=== PATIENT | male | born 1990 | race Caucasian/White ===

== ENCOUNTER 2018-04-17 03:26 | Inpatient (IN) | payer OTHER ==
[2018-04-17 04:15] LABS: ADD MAN DIFF? NO
[2018-04-17 04:21] LABS: WHITE BLOOD COUNT 20.2 10^3/ul (4.8-10.8)
[2018-04-17 04:21] LABS: ABNORMAL IP MESSAGE 1; BASOPHILS % 0.2 % (0.0-2.0); HEMATOCRIT 43.8 % (42.0-52.0); HEMOGLOBIN 13.5 g/dl (14.0-18.0); LYMPHOCYTES # 0.9 10^3/ul (0.8-2.9); LYMPHOCYTES % 4.5 % (15.0-51.0); MEAN CORPUSCULAR HEMOGLOBIN 29.7 pg (29.0-33.0); MEAN CORPUSCULAR HGB CONC 30.8 g/dl (32.0-37.0); MEAN CORPUSCULAR VOLUME 96.3 fl (82.0-101.0); MONOCYTE # 1.5 10^3/ul (0.3-0.9); MONOCYTES % 7.6 % (0.0-11.0); NEUTROPHIL # 17.6 10^3/ul (1.6-7.5); NEUTROPHILS % 87.2 % (39.0-77.0); PLATELET COUNT 329 10^3/UL (140-415); POSITIVE DIFF @See below; RED BLOOD COUNT 4.55 10^6/ul (4.70-6.10); RED CELL DISTRIBUTION WIDTH 14.3 % (11.5-14.5)
[2018-04-17 04:34] LABS: ALANINE AMINOTRANSFERASE 27 IU/L (13-69); ALBUMIN 5.2 g/dl (3.3-4.9); ALBUMIN/GLOBULIN RATIO 1.04; ALKALINE PHOSPHATASE 62 IU/L (42-121); ANION GAP 21 (5-13); ASPARTATE AMINO TRANSFERASE 56 IU/L (15-46); BILIRUBIN,INDIRECT 0.2 mg/dl (0-1.1); BILIRUBIN,TOTAL 0.2 mg/dl (0.2-1.3); BLOOD UREA NITROGEN 22 mg/dl (7-20); CALCIUM 10.6 mg/dl (8.4-10.2); CARBON DIOXIDE 16 mmol/L (21-31); CHLORIDE 115 mmol/L (97-110); CREATININE 0.93 mg/dl (0.61-1.24); Estimated GFR > 60 mL/min (>60); GLUCOSE 283 mg/dl (70-220); LIPASE 1387 U/L (23-300); POTASSIUM 4.4 mmol/L (3.5-5.1); SODIUM 152 mmol/L (135-144); TOTAL PROTEIN 10.2 g/dl (6.1-8.1)
[2018-04-17 04:45] LABS: TROPONIN-I 0.031 ng/ml (0.000-0.120)
[2018-04-17 05:03] LABS: INR 1.05; PROTIME 13.8 Sec (11.9-14.9); PT RATIO 1.1
[2018-04-17 05:04] LABS: PARTIAL THROMBOPLASTIN TIME 29.8 Sec (23.0-35.0)
[2018-04-17] MEDS: IOHEXOL 100 ML (05:38)
[2018-04-17] MEDS: SOD CHLORIDE 0.9% 100 ML (05:38)
[2018-04-17] MEDS: SODIUM CHLORIDE 0.9% 1L BAG IV* (06:00)
[2018-04-17] MEDS: VANCOMYCIN 1 GM (PMX) 250 ML IVPB (06:12)
[2018-04-17] MEDS: CEFEPIME 2GM/50 ML (PMX) 50 ML IVPB (06:12)
[2018-04-17] MEDS ORDERED: ACETAMINOPHEN 325 MG TAB PO (06:30)
[2018-04-17] MEDS ORDERED: ONDANSETRON 4 MG INJ IV ×2 (06:30→07:30)
[2018-04-17] MEDS: ACETAMINOPHEN 650 MG SUPP PR (06:34)
[2018-04-17] MEDS ORDERED: VANCOMYCIN IV PER PHARMACY XX (07:30)
[2018-04-17] MEDS: SOD CHLORIDE 0.9% 1,000 ML IV (07:30)
[2018-04-17] MEDS ORDERED: NACL 0.9% 3 ML SYG IV (07:30)
[2018-04-17] MEDS ORDERED: ACETAMINOPHEN 650 MG SUPP PR (07:30)
[2018-04-17] MEDS: DIATR MEGLU/DIATRIZOATE SODIUM 120 ML BTL PO (08:30)
[2018-04-17] MEDS ORDERED: DEXTROSE 50% 50 ML SYRINGE IV ×2 (11:00)
[2018-04-17] MEDS ORDERED: GLUCAGON 1 MG INJ IM (11:00)
[2018-04-17] MEDS ORDERED: GLUCOSE GEL 15 GRAM TUBE BUCCAL (11:00)
[2018-04-17] MEDS ORDERED: GLUCOSE GEL 15 GRAM TUBE PO ×2 (11:00)
[2018-04-17] MEDS: SOD CHLORIDE 0.45% 1,000 ML IV ×2 (11:07→20:38)
[2018-04-17 11:17] LABS: LACTIC ACID 3.1 mmol/L (0.5-2.0)
[2018-04-17] MEDS ORDERED: DIPHENHYDRAMINE 50 MG CAP PO (11:30)
[2018-04-17] MEDS ORDERED: AL HYDROX/MG HYDROX/SIMETH 30 ML CUP PO (11:30)
[2018-04-17] MEDS: INSULIN ASPART [NOVOLOG] 3 ML PEN SC ×3 (11:48→20:53)
[2018-04-17] MEDS: VANCOMYCIN 1.25 GM in SOD CHLORIDE 0.9% 250 ML IVPB ×2 (12:15→19:17)
[2018-04-17] MEDS: PIPER-TAZO 3.375 GM IV (PMX) 100 ML IVPB ×3 (12:15→23:17)
[2018-04-17] MEDS ORDERED: HEPARIN 5,000 UNIT/0.5 ML VIAL ×2 (13:48→22:33)
[2018-04-17] MEDS: DICLOFENAC SODIUM 1% GEL 100 GM TUBE TP ×3 (14:01→20:32)
[2018-04-17] MEDS: GABAPENTIN 300 MG CAP PO ×2 (14:02→20:34)
[2018-04-17] MEDS: BACLOFEN 10 MG TAB PO ×2 (14:02→20:34)
[2018-04-17] MEDS: HEPARIN 5,000 UNIT/1 ML VIAL SC ×2 (14:03→22:46)
[2018-04-17] MEDS: DIAZEPAM 5 MG TAB PO ×2 (14:06→20:38)
[2018-04-17] MEDS: HYDROCODONE/APAP (5/325) TAB PO ×2 (14:20→20:32)
[2018-04-17] MEDS: ASCORBIC ACID 500 MG TAB PO (20:34)
[2018-04-17] MEDS: TAMSULOSIN (SR) 0.4 MG CAP PO (20:34)
[2018-04-17] MEDS: ATORVASTATIN 20 MG TAB PO (20:34)
[2018-04-17] MEDS: BISACODYL 10 MG SUPP PR (21:00)
[2018-04-17] MEDS: ZOLPIDEM 5 MG TAB PO (22:44)
[2018-04-17] MEDS: ACETAMINOPHEN 325 MG TAB PO (22:52)
[2018-04-17] MEDS: MAGNESIUM HYDROXIDE 30ML CUP PO (23:46)
[2018-04-17] MEDS: POLYETHYLENE GLYCOL 17 GM PACKET PO (23:46)
[2018-04-18] MEDS: HYDROCODONE/APAP (5/325) TAB PO ×5 (01:29→22:09)
[2018-04-18] MEDS: TIZANIDINE 2 MG TAB PO (01:42)
[2018-04-18] MEDS: ACCU-CHEK XX (02:00)
[2018-04-18] MEDS: VANCOMYCIN 1.25 GM in SOD CHLORIDE 0.9% 250 ML IVPB ×2 (03:27→17:58)
[2018-04-18] MEDS: ACETAMINOPHEN 325 MG TAB PO ×3 (04:23→18:15)
[2018-04-18] MEDS ORDERED: HEPARIN 5,000 UNIT/0.5 ML VIAL ×4 (06:25→21:09)
[2018-04-18] MEDS: PIPER-TAZO 3.375 GM IV (PMX) 100 ML IVPB ×4 (06:31→23:44)
[2018-04-18] MEDS: PANTOPRAZOLE 40 MG INJ IV (06:32)
[2018-04-18] MEDS: HEPARIN 5,000 UNIT/1 ML VIAL SC ×3 (06:34→21:16)
[2018-04-18] MEDS: SOD CHLORIDE 0.45% 1,000 ML IV ×3 (07:00→23:45)
[2018-04-18] MEDS: INSULIN ASPART [NOVOLOG] 3 ML PEN SC ×4 (07:55→20:55)
[2018-04-18 08:46] LABS: MAGNESIUM 2.5 mg/dl (1.7-2.5)
[2018-04-18 08:51] LABS: ALANINE AMINOTRANSFERASE 33 IU/L (13-69); ALBUMIN 4.4 g/dl (3.3-4.9); ALBUMIN/GLOBULIN RATIO 1.33; ALKALINE PHOSPHATASE 44 IU/L (42-121); ANION GAP 13 (5-13); ASPARTATE AMINO TRANSFERASE 42 IU/L (15-46); BILIRUBIN,INDIRECT 0.4 mg/dl (0-1.1); BILIRUBIN,TOTAL 0.4 mg/dl (0.2-1.3); BLOOD UREA NITROGEN 18 mg/dl (7-20); CALCIUM 9.1 mg/dl (8.4-10.2); CARBON DIOXIDE 23 mmol/L (21-31); CHLORIDE 109 mmol/L (97-110); CREATININE 0.64 mg/dl (0.61-1.24); Estimated GFR > 60 mL/min (>60); GLUCOSE 120 mg/dl (70-220); POTASSIUM 3.9 mmol/L (3.5-5.1); SODIUM 145 mmol/L (135-144); TOTAL PROTEIN 7.7 g/dl (6.1-8.1)
[2018-04-18] MEDS: FLUOXETINE 10 MG CAP PO (08:55)
[2018-04-18] MEDS: ASCORBIC ACID 500 MG TAB PO ×2 (08:55→20:56)
[2018-04-18] MEDS: GABAPENTIN 300 MG CAP PO ×3 (08:55→20:56)
[2018-04-18] MEDS: MAGNESIUM HYDROXIDE 30ML CUP PO ×3 (08:56→21:00)
[2018-04-18] MEDS: BACLOFEN 10 MG TAB PO ×3 (08:56→20:56)
[2018-04-18] MEDS: POLYETHYLENE GLYCOL 17 GM PACKET PO ×3 (08:56→21:00)
[2018-04-18] MEDS: DICLOFENAC SODIUM 1% GEL 100 GM TUBE TP ×4 (08:57→20:58)
[2018-04-18] MEDS: DIAZEPAM 5 MG TAB PO ×3 (08:57→20:57)
[2018-04-18 09:17] LABS: THYROID STIMULATING HORMONE 0.563 MIU/L (0.465-4.680)
[2018-04-18 09:18] LABS: HEMOGLOBIN A1C 6.3 % (0-5.9)
[2018-04-18 11:02] LABS: VANCOMYCIN,TROUGH 23.6 ug/ml (10.0-20.0)
[2018-04-18] MEDS: morphine (ER) 15 MG TAB PO ×2 (11:57→20:57)
[2018-04-18] MEDS: ATORVASTATIN 20 MG TAB PO (20:56)
[2018-04-18] MEDS: TAMSULOSIN (SR) 0.4 MG CAP PO (20:56)
[2018-04-18] MEDS: BISACODYL 10 MG SUPP PR ×2 (20:57→21:00)
[2018-04-18] MEDS: ZOLPIDEM 5 MG TAB PO (23:47)
[2018-04-19] MEDS: ACCU-CHEK XX (01:17)
[2018-04-19] MEDS: SOD CHLORIDE 0.45% 1,000 ML IV ×3 (02:44→22:11)
[2018-04-19] MEDS: HYDROCODONE/APAP (5/325) TAB PO ×4 (02:45→18:19)
[2018-04-19] MEDS ORDERED: HEPARIN 5,000 UNIT/0.5 ML VIAL ×2 (05:28→13:14)
[2018-04-19] MEDS: PIPER-TAZO 3.375 GM IV (PMX) 100 ML IVPB ×3 (05:34→17:13)
[2018-04-19] MEDS: PANTOPRAZOLE 40 MG INJ IV (05:34)
[2018-04-19] MEDS: HEPARIN 5,000 UNIT/1 ML VIAL SC ×3 (05:43→21:25)
[2018-04-19] MEDS: VANCOMYCIN 1.25 GM in SOD CHLORIDE 0.9% 250 ML IVPB ×2 (06:16→18:03)
[2018-04-19 06:21] LABS: ADD MAN DIFF? NO
[2018-04-19 06:29] LABS: WHITE BLOOD COUNT 7.4 10^3/ul (4.8-10.8)
[2018-04-19 06:29] LABS: BASOPHILS % 0.5 % (0.0-2.0); EOSINOPHILS # 0.2 10^3/ul (0.0-0.5); EOSINOPHILS % 2.7 % (0.0-7.0); HEMATOCRIT 28.3 % (42.0-52.0); HEMOGLOBIN 8.9 g/dl (14.0-18.0); LYMPHOCYTES # 2.2 10^3/ul (0.8-2.9); MEAN CORPUSCULAR HEMOGLOBIN 29.5 pg (29.0-33.0); MEAN CORPUSCULAR HGB CONC 31.4 g/dl (32.0-37.0); MEAN CORPUSCULAR VOLUME 93.7 fl (82.0-101.0); MEAN PLATELET VOLUME 11.8 fl (7.4-10.4); MONOCYTE # 0.9 10^3/ul (0.3-0.9); MONOCYTES % 12.1 % (0.0-11.0); NEUTROPHILS % 54.4 % (39.0-77.0); PLATELET COUNT 224 10^3/UL (140-415); RED BLOOD COUNT 3.02 10^6/ul (4.70-6.10); RED CELL DISTRIBUTION WIDTH 13.9 % (11.5-14.5)
[2018-04-19 07:00] LABS: ANION GAP 7 (5-13); BLOOD UREA NITROGEN 8 mg/dl (7-20); CARBON DIOXIDE 26 mmol/L (21-31); CHLORIDE 109 mmol/L (97-110); CREATININE 0.52 mg/dl (0.61-1.24); Estimated GFR > 60 mL/min (>60); GLUCOSE 103 mg/dl (70-220); MAGNESIUM 2.3 mg/dl (1.7-2.5); PHOSPHORUS 2.3 mg/dl (2.5-4.9); POTASSIUM 3.6 mmol/L (3.5-5.1); SODIUM 142 mmol/L (135-144)
[2018-04-19] MEDS: INSULIN ASPART [NOVOLOG] 3 ML PEN SC ×4 (07:43→21:00)
[2018-04-19] MEDS: POLYETHYLENE GLYCOL 17 GM PACKET PO ×2 (09:00→21:01)
[2018-04-19] MEDS: morphine (ER) 15 MG TAB PO ×2 (09:05→21:01)
[2018-04-19] MEDS: GABAPENTIN 300 MG CAP PO ×3 (09:05→21:00)
[2018-04-19] MEDS: DIAZEPAM 5 MG TAB PO ×3 (09:05→21:01)
[2018-04-19] MEDS: ASCORBIC ACID 500 MG TAB PO ×2 (09:05→21:00)
[2018-04-19] MEDS: FLUOXETINE 10 MG CAP PO (09:05)
[2018-04-19] MEDS: BACLOFEN 10 MG TAB PO ×2 (09:05→12:35)
[2018-04-19] MEDS: DICLOFENAC SODIUM 1% GEL 100 GM TUBE TP ×4 (09:06→20:59)
[2018-04-19] MEDS: MAGNESIUM HYDROXIDE 30ML CUP PO ×2 (09:15→21:01)
[2018-04-19] MEDS: ACETAMINOPHEN 325 MG TAB PO ×2 (11:05→15:05)
[2018-04-19] MEDS: ATORVASTATIN 20 MG TAB PO (21:00)
[2018-04-19] MEDS: BISACODYL 10 MG SUPP PR (21:00)
[2018-04-19] MEDS: TAMSULOSIN (SR) 0.4 MG CAP PO (21:00)
[2018-04-19] MEDS: POTASSIUM PHOSPHATE 20 MEQ in SOD CHLORIDE 0.9% 250 ML IVPB (21:03)
[2018-04-20] MEDS: PIPER-TAZO 3.375 GM IV (PMX) 100 ML IVPB ×3 (00:32→14:10)
[2018-04-20] MEDS: HYDROCODONE/APAP (5/325) TAB PO ×3 (00:56→17:29)
[2018-04-20] MEDS: ACCU-CHEK XX (01:58)
[2018-04-20 06:12] LABS: ADD MAN DIFF? NO
[2018-04-20] MEDS: PANTOPRAZOLE 40 MG INJ IV (06:13)
[2018-04-20 06:14] LABS: BASOPHIL # 0.1 10^3/ul (0.0-0.1); BASOPHILS % 0.7 % (0.0-2.0); EOSINOPHILS # 0.3 10^3/ul (0.0-0.5); EOSINOPHILS % 3.6 % (0.0-7.0); HEMATOCRIT 32.1 % (42.0-52.0); HEMOGLOBIN 9.9 g/dl (14.0-18.0); LYMPHOCYTES # 1.7 10^3/ul (0.8-2.9); LYMPHOCYTES % 22.7 % (15.0-51.0); MEAN CORPUSCULAR HEMOGLOBIN 29.2 pg (29.0-33.0); MEAN CORPUSCULAR HGB CONC 30.8 g/dl (32.0-37.0); MEAN CORPUSCULAR VOLUME 94.7 fl (82.0-101.0); MEAN PLATELET VOLUME 12.6 fl (7.4-10.4); MONOCYTE # 0.7 10^3/ul (0.3-0.9); MONOCYTES % 9.4 % (0.0-11.0); NEUTROPHIL # 4.8 10^3/ul (1.6-7.5); NEUTROPHILS % 63.3 % (39.0-77.0); PLATELET COUNT 225 10^3/UL (140-415); RED BLOOD COUNT 3.39 10^6/ul (4.70-6.10); RED CELL DISTRIBUTION WIDTH 13.6 % (11.5-14.5)
[2018-04-20 06:14] LABS: WHITE BLOOD COUNT 7.6 10^3/ul (4.8-10.8)
[2018-04-20] MEDS: HEPARIN 5,000 UNIT/1 ML VIAL SC ×2 (06:28→14:44)
[2018-04-20] MEDS: VANCOMYCIN 1.25 GM in SOD CHLORIDE 0.9% 250 ML IVPB (06:52)
[2018-04-20 07:02] LABS: ANION GAP 10 (5-13); BLOOD UREA NITROGEN 9 mg/dl (7-20); CALCIUM 9.3 mg/dl (8.4-10.2); CARBON DIOXIDE 25 mmol/L (21-31); CHLORIDE 108 mmol/L (97-110); Estimated GFR > 60 mL/min (>60); GLUCOSE 108 mg/dl (70-220); MAGNESIUM 2.3 mg/dl (1.7-2.5); POTASSIUM 4.1 mmol/L (3.5-5.1); SODIUM 143 mmol/L (135-144)
[2018-04-20 07:36] LABS: VANCOMYCIN,TROUGH 15.4 ug/ml (10.0-20.0)
[2018-04-20] MEDS: INSULIN ASPART [NOVOLOG] 3 ML PEN SC ×2 (08:02→12:09)
[2018-04-20] MEDS: DICLOFENAC SODIUM 1% GEL 100 GM TUBE TP ×3 (09:00→17:28)
[2018-04-20] MEDS: SOD CHLORIDE 0.45% 1,000 ML IV (09:00)
[2018-04-20] MEDS: MAGNESIUM HYDROXIDE 30ML CUP PO (09:38)
[2018-04-20] MEDS: POLYETHYLENE GLYCOL 17 GM PACKET PO (09:38)
[2018-04-20] MEDS: GABAPENTIN 300 MG CAP PO ×2 (09:39→14:10)
[2018-04-20] MEDS: morphine (ER) 15 MG TAB PO (09:39)
[2018-04-20] MEDS: FLUOXETINE 10 MG CAP PO (09:39)
[2018-04-20] MEDS: ASCORBIC ACID 500 MG TAB PO (09:39)
[2018-04-20] MEDS: DIAZEPAM 5 MG TAB PO ×2 (09:40→14:10)
[2018-04-20] MEDS: BACLOFEN 10 MG TAB PO (10:56)
[2018-04-20] MEDS: LIDOCAINE 1% (MPF) 5 ML VIAL SC (12:35)
== END 2018-04-20 17:41 | DRG 871 ==
LOC: E/R 03:26 → TEL 06:21
PROC: 5A1945Z Respiratory Ventilation, 24-96 Consecutive Hours (ICD-10-PCS; principal; 2018-04-17)
PROC: 05HY33Z Insertion of Infusion Device into Upper Vein, Percutaneous Approach (ICD-10-PCS; 2018-04-17)
PROC: B54MZZA Ultrasonography of Right Upper Extremity Veins, Guidance (ICD-10-PCS; 2018-04-17)
DX: A41.9 Sepsis, unspecified organism (principal); J18.9 Pneumonia, unspecified organism; K56.600 Partial intestinal obstruction, unspecified as to cause; Z99.11 Dependence on respirator [ventilator] status; G82.20 Paraplegia, unspecified; R65.20 Severe sepsis without septic shock; Z93.0 Tracheostomy status; E86.0 Dehydration; G89.29 Other chronic pain; S32.049D Unspecified fracture of fourth lumbar vertebra, subsequent encounter for fracture with routine healing; S32.059D Unspecified fracture of fifth lumbar vertebra, subsequent encounter for fracture with routine healing; E11.9 Type 2 diabetes mellitus without complications; M79.2 Neuralgia and neuritis, unspecified; R74.8 Abnormal levels of other serum enzymes; Z79.4 Long term (current) use of insulin; W34.00XD Accidental discharge from unspecified firearms or gun, subsequent encounter
CPT/HCPCS: 36415; 36569; 71045; 71275; 74019; 74176; 76937; 80048; 80053; 80202; 82962; 83036; 83605; 83690; 83735; 84100; 84443; 84484; 85025; 85610; 85730; 87040; 87070; 87081; 87400; 89220; 92526; 92610; 93005; 94002; 94003; 96374; 96375; 99291-25

== ENCOUNTER 2018-04-21 00:38 | Inpatient (IN) | payer OTHER ==
[2018-04-21 01:38] LABS: ADD MAN DIFF? NO
[2018-04-21 01:45] LABS: WHITE BLOOD COUNT 5.9 10^3/ul (4.8-10.8)
[2018-04-21 01:45] LABS: BASOPHILS % 0.7 % (0.0-2.0); EOSINOPHILS # 0.4 10^3/ul (0.0-0.5); EOSINOPHILS % 6.1 % (0.0-7.0); HEMOGLOBIN 9.3 g/dl (14.0-18.0); LYMPHOCYTES # 1.3 10^3/ul (0.8-2.9); LYMPHOCYTES % 22.7 % (15.0-51.0); MEAN CORPUSCULAR HEMOGLOBIN 29.3 pg (29.0-33.0); MEAN CORPUSCULAR VOLUME 94.6 fl (82.0-101.0); MEAN PLATELET VOLUME 11.6 fl (7.4-10.4); MONOCYTE # 0.5 10^3/ul (0.3-0.9); MONOCYTES % 7.7 % (0.0-11.0); NEUTROPHIL # 3.7 10^3/ul (1.6-7.5); NEUTROPHILS % 62.3 % (39.0-77.0); PLATELET COUNT 213 10^3/UL (140-415); RED BLOOD COUNT 3.17 10^6/ul (4.70-6.10); RED CELL DISTRIBUTION WIDTH 13.2 % (11.5-14.5)
[2018-04-21] MEDS: SODIUM CHLORIDE 0.9% 1L BAG IV* (01:54)
[2018-04-21 02:01] LABS: INR 1.02; PARTIAL THROMBOPLASTIN TIME 30.6 Sec (23.0-35.0); PROTIME 13.5 Sec (11.9-14.9); PT RATIO 1.1
[2018-04-21 02:07] LABS: ANION GAP 10 (5-13); BLOOD UREA NITROGEN 9 mg/dl (7-20); CALCIUM 9.1 mg/dl (8.4-10.2); CARBON DIOXIDE 26 mmol/L (21-31); CHLORIDE 109 mmol/L (97-110); CREATININE 0.57 mg/dl (0.61-1.24); Estimated GFR > 60 mL/min (>60); GLUCOSE 139 mg/dl (70-220); POTASSIUM 3.6 mmol/L (3.5-5.1); SODIUM 145 mmol/L (135-144)
[2018-04-21 02:18] LABS: TROPONIN-I < 0.012 ng/ml (0.000-0.120)
[2018-04-21] MEDS ORDERED: AL HYDROX/MG HYDROX/SIMETH 30 ML CUP PO (02:30)
[2018-04-21] MEDS ORDERED: LOPERAMIDE 2 MG CAP PO (02:30)
[2018-04-21] MEDS ORDERED: ALBUTEROL HFA 8 GM INHALER INH (02:30)
[2018-04-21] MEDS ORDERED: IPRATROPIUM (HFA) 12.9 GM INHALER INH (02:30)
[2018-04-21] MEDS ORDERED: BACLOFEN 10 MG TAB PO (02:30)
[2018-04-21 03:25] LABS: ADD UMIC YES; UR ASCORBIC ACID 40 mg/dL (NEGATIVE); UR BILIRUBIN (Dip) NEGATIVE (NEGATIVE); UR BLOOD (Dip) NEGATIVE (NEGATIVE); UR CLARITY CLEAR (CLEAR); UR COLOR YELLOW (YELLOW); UR GLUCOSE (Dip) 2+ mg/dL (NEGATIVE); UR KETONES (Dip) TRACE mg/dL (NEGATIVE); UR LEUKOCYTE ESTERASE (Dip) TRACE Leu/ul (NEGATIVE); UR NITRITE (Dip) NEGATIVE (NEGATIVE); UR RBC 4 /HPF (0-5); UR SPECIFIC GRAVITY (Dip) 1.014 (1.003-1.030); UR TOTAL PROTEIN (Dip) NEGATIVE (NEGATIVE); UR UROBILINOGEN (Dip) NEGATIVE (NEGATIVE); UR WBC 23 /HPF (0-5)
[2018-04-21] MEDS: DEXTROSE 5%-0.45% NACL 1,000 ML IV ×3 (04:00→15:00)
[2018-04-21] MEDS: IBUPROFEN 200 MG TAB PO ×2 (05:41→14:18)
[2018-04-21 05:49] LABS: ADD MAN DIFF? NO
[2018-04-21 05:57] LABS: BASOPHILS % 0.7 % (0.0-2.0); EOSINOPHILS # 0.4 10^3/ul (0.0-0.5); EOSINOPHILS % 6.5 % (0.0-7.0); HEMATOCRIT 28.7 % (42.0-52.0); HEMOGLOBIN 8.9 g/dl (14.0-18.0); LYMPHOCYTES # 1.2 10^3/ul (0.8-2.9); LYMPHOCYTES % 21.1 % (15.0-51.0); MEAN CORPUSCULAR HEMOGLOBIN 29.3 pg (29.0-33.0); MEAN CORPUSCULAR VOLUME 94.4 fl (82.0-101.0); MONOCYTE # 0.6 10^3/ul (0.3-0.9); MONOCYTES % 9.9 % (0.0-11.0); NEUTROPHIL # 3.6 10^3/ul (1.6-7.5); NEUTROPHILS % 61.3 % (39.0-77.0); PLATELET COUNT 214 10^3/UL (140-415); RED BLOOD COUNT 3.04 10^6/ul (4.70-6.10); RED CELL DISTRIBUTION WIDTH 13.4 % (11.5-14.5)
[2018-04-21 05:57] LABS: WHITE BLOOD COUNT 5.8 10^3/ul (4.8-10.8)
[2018-04-21 06:15] LABS: LACTIC ACID 1.5 mmol/L (0.5-2.0)
[2018-04-21 06:23] LABS: ALANINE AMINOTRANSFERASE 45 IU/L (13-69); ALBUMIN 3.4 g/dl (3.3-4.9); ALKALINE PHOSPHATASE 35 IU/L (42-121); ANION GAP 10 (5-13); ASPARTATE AMINO TRANSFERASE 28 IU/L (15-46); BILIRUBIN,INDIRECT 0.3 mg/dl (0-1.1); BILIRUBIN,TOTAL 0.3 mg/dl (0.2-1.3); BLOOD UREA NITROGEN 11 mg/dl (7-20); CALCIUM 8.9 mg/dl (8.4-10.2); CARBON DIOXIDE 27 mmol/L (21-31); CHLORIDE 109 mmol/L (97-110); Estimated GFR > 60 mL/min (>60); GLUCOSE 125 mg/dl (70-220); MAGNESIUM 2.7 mg/dl (1.7-2.5); POTASSIUM 3.7 mmol/L (3.5-5.1); SODIUM 146 mmol/L (135-144)
[2018-04-21 06:33] LABS: FREE T4 (FREE THYROXINE) 1.45 ng/dl (0.79-2.35)
[2018-04-21 08:10] LABS: IRON 64 ug/dl (35-150)
[2018-04-21 08:15] LABS: AADO2 Arterial 117.1 mmHg (7.0-24.0); Arterial Base Excess 1.2 mmol/L (-3.0-3); Arterial Blood Gas Oxygen Sat 98.3 mmHG (95.0-98.0); Arterial COHb 0.1 % (0.0-3.0); Arterial Fraction of Oxyhgb 97.9 % (93.0-99.0); Arterial HCO3 24.7 mmol/L (22.0-26.0); Arterial MetHb 0.3 % (0.0-1.5); Arterial pCO2 34.7 mmhg (35-45); MODE VENT - AC; Site Right Brachial
[2018-04-21 08:19] LABS: % IRON SATURATION 17 % SAT (22-52); TOTAL IRON BINDING CAPACITY 377 ug/dl (241-421)
[2018-04-21] MEDS: POLYETHYLENE GLYCOL 17 GM PACKET PO ×2 (08:44→21:00)
[2018-04-21] MEDS: ASCORBIC ACID 500 MG TAB PO ×2 (08:44→21:25)
[2018-04-21] MEDS: MAGNESIUM HYDROXIDE 30ML CUP PO ×2 (08:44→21:00)
[2018-04-21] MEDS: GABAPENTIN 300 MG CAP PO ×3 (08:44→21:25)
[2018-04-21] MEDS: DOCUSATE SODIUM 100 MG CAP PO ×2 (08:44→21:25)
[2018-04-21] MEDS: FLUOXETINE 10 MG CAP PO (08:44)
[2018-04-21] MEDS: DOXYCYCLINE 100 MG in SOD CHLORIDE 0.9% 250 ML IVPB ×2 (08:50→21:25)
[2018-04-21] MEDS: DIAZEPAM 5 MG TAB PO ×2 (08:50→21:26)
[2018-04-21] MEDS: ACETAMINOPHEN 650MG/20.3ML CUP PO ×2 (10:11→20:11)
[2018-04-21] MEDS: LEVOFLOXACIN 750MG/D5W (PMX) 150 ML IVPB (12:57)
[2018-04-21] MEDS: INSULIN ASPART [NOVOLOG] 3 ML PEN SC ×3 (13:00→21:00)
[2018-04-21] MEDS: SOD CHLORIDE 0.9% 500 ML IV (13:16)
[2018-04-21] MEDS: DIPHENHYDRAMINE 50 MG CAP PO ×2 (13:25→23:51)
[2018-04-21] MEDS: ENOXAPARIN 30 MG/0.3 ML SYG SC (13:33)
[2018-04-21] MEDS: morphine (ER) 15 MG TAB PO ×2 (15:24→23:52)
[2018-04-21] MEDS: BACLOFEN 10 MG TAB PO ×2 (16:56→20:11)
[2018-04-21] MEDS ORDERED: morphine (ER) 15 MG TAB PO (20:00)
[2018-04-21] MEDS ORDERED: FENOFIBRIC ACID PO (21:00)
[2018-04-21] MEDS: ATORVASTATIN 20 MG TAB PO (21:25)
[2018-04-21] MEDS: RANITIDINE 150 MG TAB PO (21:25)
[2018-04-21] MEDS: TAMSULOSIN (SR) 0.4 MG CAP PO (21:26)
[2018-04-21] MEDS: FENOFIBRATE 145 MG TAB PO (21:26)
[2018-04-21] MEDS: ZOLPIDEM 5 MG TAB PO (22:51)
[2018-04-22] MEDS: ACCU-CHEK XX (02:00)
[2018-04-22] MEDS: BACLOFEN 10 MG TAB PO ×3 (03:50→16:00)
[2018-04-22] MEDS: ACETAMINOPHEN 650MG/20.3ML CUP PO (03:50)
[2018-04-22 05:19] LABS: ADD MAN DIFF? NO
[2018-04-22 05:22] LABS: BASOPHIL # 0.1 10^3/ul (0.0-0.1); BASOPHILS % 0.7 % (0.0-2.0); EOSINOPHILS # 0.2 10^3/ul (0.0-0.5); EOSINOPHILS % 3.5 % (0.0-7.0); HEMATOCRIT 28.8 % (42.0-52.0); HEMOGLOBIN 8.9 g/dl (14.0-18.0); LYMPHOCYTES # 1.9 10^3/ul (0.8-2.9); LYMPHOCYTES % 28.1 % (15.0-51.0); MEAN CORPUSCULAR HEMOGLOBIN 29.1 pg (29.0-33.0); MEAN CORPUSCULAR HGB CONC 30.9 g/dl (32.0-37.0); MEAN CORPUSCULAR VOLUME 94.1 fl (82.0-101.0); MEAN PLATELET VOLUME 11.9 fl (7.4-10.4); MONOCYTE # 0.7 10^3/ul (0.3-0.9); MONOCYTES % 10.4 % (0.0-11.0); NEUTROPHIL # 3.8 10^3/ul (1.6-7.5); NEUTROPHILS % 56.3 % (39.0-77.0); PLATELET COUNT 269 10^3/UL (140-415); RED BLOOD COUNT 3.06 10^6/ul (4.70-6.10); RED CELL DISTRIBUTION WIDTH 13.9 % (11.5-14.5)
[2018-04-22 05:22] LABS: WHITE BLOOD COUNT 6.8 10^3/ul (4.8-10.8)
[2018-04-22 05:35] LABS: MAGNESIUM 2.3 mg/dl (1.7-2.5)
[2018-04-22 05:35] LABS: PHOSPHORUS 2.5 mg/dl (2.5-4.9)
[2018-04-22 05:36] LABS: ANION GAP 10 (5-13); BLOOD UREA NITROGEN 7 mg/dl (7-20); CALCIUM 9.3 mg/dl (8.4-10.2); CARBON DIOXIDE 24 mmol/L (21-31); CHLORIDE 112 mmol/L (97-110); CREATININE 0.76 mg/dl (0.61-1.24); Estimated GFR > 60 mL/min (>60); GLUCOSE 111 mg/dl (70-220); POTASSIUM 3.8 mmol/L (3.5-5.1); SODIUM 146 mmol/L (135-144)
[2018-04-22] MEDS: DEXTROSE 5%-0.45% NACL 1,000 ML IV (05:43)
[2018-04-22] MEDS: DIPHENHYDRAMINE 50 MG CAP PO (05:43)
[2018-04-22] MEDS: INSULIN ASPART [NOVOLOG] 3 ML PEN SC ×2 (07:35→11:30)
[2018-04-22] MEDS: DOCUSATE SODIUM 100 MG CAP PO (08:29)
[2018-04-22] MEDS: MAGNESIUM HYDROXIDE 30ML CUP PO (08:30)
[2018-04-22] MEDS: POLYETHYLENE GLYCOL 17 GM PACKET PO (08:30)
[2018-04-22] MEDS: FLUOXETINE 10 MG CAP PO (08:31)
[2018-04-22] MEDS: GABAPENTIN 300 MG CAP PO ×2 (08:31→12:47)
[2018-04-22] MEDS: DIAZEPAM 5 MG TAB PO (08:31)
[2018-04-22] MEDS: morphine (ER) 15 MG TAB PO (08:31)
[2018-04-22] MEDS: ASCORBIC ACID 500 MG TAB PO (08:31)
[2018-04-22] MEDS ORDERED: morphine (ER) 15 MG TAB PO (09:00)
[2018-04-22] MEDS: ENOXAPARIN 30 MG/0.3 ML SYG SC (09:07)
[2018-04-22] MEDS: DOXYCYCLINE 100 MG in SOD CHLORIDE 0.9% 250 ML IVPB (09:22)
[2018-04-22] MEDS: IBUPROFEN 200 MG TAB PO ×2 (11:16→16:01)
== END 2018-04-22 16:42 | disposition home or self-care (01) | DRG 309 ==
LOC: E/R 00:38 → ICU 02:23
PROC: 5A1945Z Respiratory Ventilation, 24-96 Consecutive Hours (ICD-10-PCS; principal; 2018-04-21)
DX: R00.1 Bradycardia, unspecified (principal); G82.20 Paraplegia, unspecified; J96.10 Chronic respiratory failure, unspecified whether with hypoxia or hypercapnia; Z99.11 Dependence on respirator [ventilator] status; E11.9 Type 2 diabetes mellitus without complications; D64.9 Anemia, unspecified; Z93.0 Tracheostomy status; E78.5 Hyperlipidemia, unspecified; Z79.4 Long term (current) use of insulin
CPT/HCPCS: 36600; 71045; 80048; 80053; 81001; 82728; 82803; 82962; 83540; 83605; 83735; 84100; 84439; 84484; 85025; 85610; 85730; 87040; 87086; 93005; 94002; 94003

== ENCOUNTER 2018-07-06 15:00 | Inpatient (IN) | payer OTHER ==
[2018-07-06] MEDS: SOD CHLORIDE 0.9% 1,000 ML IV ×3 (02:38→19:35)
[2018-07-06] MEDS: POTASSIUM CHLORIDE (SR) 20 MEQ TAB PO (02:38)
[2018-07-06 15:37] LABS: ADD MAN DIFF? NO
[2018-07-06 15:45] LABS: WHITE BLOOD COUNT 6.7 10^3/ul (4.8-10.8)
[2018-07-06 15:45] LABS: ABNORMAL IP MESSAGE 1; BASOPHILS % 0.6 % (0.0-2.0); EOSINOPHILS # 0.4 10^3/ul (0.0-0.5); EOSINOPHILS % 5.4 % (0.0-7.0); HEMATOCRIT 33.8 % (42.0-52.0); HEMOGLOBIN 10.4 g/dl (14.0-18.0); LYMPHOCYTES # 2.2 10^3/ul (0.8-2.9); LYMPHOCYTES % 33.3 % (15.0-51.0); MEAN CORPUSCULAR HEMOGLOBIN 28.4 pg (29.0-33.0); MEAN CORPUSCULAR HGB CONC 30.8 g/dl (32.0-37.0); MEAN CORPUSCULAR VOLUME 92.3 fl (82.0-101.0); MEAN PLATELET VOLUME 13.6 fl (7.4-10.4); MONOCYTE # 0.6 10^3/ul (0.3-0.9); MONOCYTES % 9.2 % (0.0-11.0); NEUTROPHIL # 3.4 10^3/ul (1.6-7.5); NEUTROPHILS % 51.1 % (39.0-77.0); PLATELET COUNT 231 10^3/UL (140-415); POSITIVE DIFF @See below; RED BLOOD COUNT 3.66 10^6/ul (4.70-6.10); RED CELL DISTRIBUTION WIDTH 15.3 % (11.5-14.5)
[2018-07-06 16:02] LABS: ALANINE AMINOTRANSFERASE 12 IU/L (13-69); ALBUMIN 4.2 g/dl (3.3-4.9); ALKALINE PHOSPHATASE 47 IU/L (42-121); ANION GAP 15 (5-13); ASPARTATE AMINO TRANSFERASE 28 IU/L (15-46); BLOOD UREA NITROGEN 20 mg/dl (7-20); CALCIUM 9.4 mg/dl (8.4-10.2); CARBON DIOXIDE 16 mmol/L (21-31); CHLORIDE 111 mmol/L (97-110); CREATININE 1.03 mg/dl (0.61-1.24); Estimated GFR > 60 mL/min (>60); GLUCOSE 164 mg/dl (70-220); POTASSIUM 3.2 mmol/L (3.5-5.1); SODIUM 142 mmol/L (135-144); TOTAL PROTEIN 7.7 g/dl (6.1-8.1)
[2018-07-06 17:12] LABS: AADO2 Arterial 132.6 mmHg (7.0-24.0); Allen Test ACCEPTAB; Arterial Base Excess -8.2 mmol/L (-3.0-3); Arterial Blood Gas Oxygen Sat 99.5 mmHG (95.0-98.0); Arterial COHb 0.3 % (0.0-3.0); Arterial Fraction of Oxyhgb 98.7 % (93.0-99.0); Arterial MetHb 0.5 % (0.0-1.5); Arterial pCO2 33.5 mmhg (35-45); MODE VENT - AC; Site Left Radial
[2018-07-06] MEDS ORDERED: ONDANSETRON 4 MG INJ IV ×2 (19:30→20:00)
[2018-07-06] MEDS ORDERED: ACETAMINOPHEN 325 MG TAB PO (19:30)
[2018-07-06] MEDS ORDERED: DOCUSATE SODIUM 100 MG CAP PO (20:00)
[2018-07-06] MEDS ORDERED: NACL 0.9% 3 ML SYG IV (20:00)
[2018-07-06] MEDS ORDERED: BISACODYL (EC) 5 MG TAB PO (20:00)
[2018-07-06] MEDS ORDERED: METOCLOPRAMIDE 10 MG INJ IV (20:00)
[2018-07-06 20:07] LABS: MAGNESIUM 2.2 mg/dl (1.7-2.5)
[2018-07-06] MEDS: ERTAPENEM SODIUM 1 GM in SOD CHLORIDE 0.9% 100 ML IVPB (20:11)
[2018-07-06] MEDS: DEXTROSE 5%-0.45% NACL 1,000 ML IV (20:11)
[2018-07-06] MEDS: morphine 2 MG INJ IV (22:14)
[2018-07-07] MEDS: RISPERIDONE 2 MG TAB PO (00:05)
[2018-07-07] MEDS: POTASSIUM CHLORIDE 100 ML IVPB ×2 (03:28→05:58)
[2018-07-07] MEDS: morphine 2 MG INJ IV ×3 (03:32→18:29)
[2018-07-07 05:36] LABS: ADD MAN DIFF? NO
[2018-07-07 05:39] LABS: WHITE BLOOD COUNT 8.3 10^3/ul (4.8-10.8)
[2018-07-07 05:39] LABS: BASOPHILS % 0.4 % (0.0-2.0); EOSINOPHILS # 0.3 10^3/ul (0.0-0.5); EOSINOPHILS % 3.8 % (0.0-7.0); HEMATOCRIT 32.6 % (42.0-52.0); HEMOGLOBIN 10.3 g/dl (14.0-18.0); LYMPHOCYTES # 1.7 10^3/ul (0.8-2.9); LYMPHOCYTES % 20.3 % (15.0-51.0); MEAN CORPUSCULAR HEMOGLOBIN 28.1 pg (29.0-33.0); MEAN CORPUSCULAR HGB CONC 31.6 g/dl (32.0-37.0); MEAN CORPUSCULAR VOLUME 88.8 fl (82.0-101.0); MEAN PLATELET VOLUME 12.4 fl (7.4-10.4); MONOCYTE # 0.6 10^3/ul (0.3-0.9); MONOCYTES % 7.1 % (0.0-11.0); NEUTROPHIL # 5.6 10^3/ul (1.6-7.5); NEUTROPHILS % 67.9 % (39.0-77.0); PLATELET COUNT 241 10^3/UL (140-415); RED BLOOD COUNT 3.67 10^6/ul (4.70-6.10); RED CELL DISTRIBUTION WIDTH 15.4 % (11.5-14.5)
[2018-07-07] MEDS: DEXTROSE 5%-0.45% NACL 1,000 ML IV ×2 (05:58→15:37)
[2018-07-07 05:59] LABS: ADD UMIC YES; UR ASCORBIC ACID NEGATIVE (NEGATIVE); UR BACTERIA FEW /HPF (NONE SEEN); UR BILIRUBIN (Dip) NEGATIVE (NEGATIVE); UR BLOOD (Dip) 1+ mg/dL (NEGATIVE); UR BUDDING YEAST FEW /HPF (NONE SEEN); UR CLARITY CLOUDY (CLEAR); UR COLOR YELLOW (YELLOW); UR GLUCOSE (Dip) 1+ mg/dL (NEGATIVE); UR KETONES (Dip) NEGATIVE (NEGATIVE); UR LEUKOCYTE ESTERASE (Dip) 3+ Leu/ul (NEGATIVE); UR NITRITE (Dip) NEGATIVE (NEGATIVE); UR RBC 5 /HPF (0-5); UR SPECIFIC GRAVITY (Dip) 1.009 (1.003-1.030); UR SQUAMOUS EPITHELIAL CELL FEW /HPF (FEW); UR TOTAL PROTEIN (Dip) NEGATIVE (NEGATIVE); UR UROBILINOGEN (Dip) NEGATIVE (NEGATIVE); UR WBC > 182 /HPF (0-5)
[2018-07-07 06:14] LABS: LACTIC ACID 3.5 mmol/L (0.5-2.0)
[2018-07-07 06:29] LABS: ALANINE AMINOTRANSFERASE 16 IU/L (13-69); ALBUMIN 4.4 g/dl (3.3-4.9); ALBUMIN/GLOBULIN RATIO 1.25; ALKALINE PHOSPHATASE 45 IU/L (42-121); ANION GAP 17 (5-13); ASPARTATE AMINO TRANSFERASE 25 IU/L (15-46); BILIRUBIN,INDIRECT 0.1 mg/dl (0-1.1); BILIRUBIN,TOTAL 0.1 mg/dl (0.2-1.3); BLOOD UREA NITROGEN 12 mg/dl (7-20); CALCIUM 9.6 mg/dl (8.4-10.2); CARBON DIOXIDE 16 mmol/L (21-31); CHLORIDE 114 mmol/L (97-110); CHOL/HDL RATIO 10.3 RATIO; CHOLESTEROL 176 mg/dl (100-200); CREATININE 0.76 mg/dl (0.61-1.24); Estimated GFR > 60 mL/min (>60); GLUCOSE 103 mg/dl (70-220); HDL CHOLESTEROL 17 mg/dl (28-63); LDL CHOLESTEROL,CALCULATED 61 mg/dl; MAGNESIUM 2.1 mg/dl (1.7-2.5); POTASSIUM 4.3 mmol/L (3.5-5.1); SODIUM 147 mmol/L (135-144); TOTAL PROTEIN 7.9 g/dl (6.1-8.1); TRIGLYCERIDES 488 mg/dl (0-149)
[2018-07-07] MEDS ORDERED: VANCOMYCIN IV PER PHARMACY XX (07:30)
[2018-07-07 08:04] LABS: AADO2 Arterial 57.2 mmHg (7.0-24.0); Allen Test ACCEPTAB; Arterial Base Excess -6.2 mmol/L (-3.0-3); Arterial COHb 0.3 % (0.0-3.0); Arterial Fraction of Oxyhgb 97.4 % (93.0-99.0); Arterial HCO3 17.9 mmol/L (22.0-26.0); Arterial MetHb 0.3 % (0.0-1.5); Arterial pCO2 30.7 mmhg (35-45); MODE VENT - AC; Site Right Radial
[2018-07-07] MEDS: PIPER-TAZO 3.375 GM IV (PMX) 100 ML IVPB ×3 (08:29→17:04)
[2018-07-07] MEDS: ENOXAPARIN 40 MG/0.4 ML SYG SC (08:35)
[2018-07-07] MEDS: VANCOMYCIN HCL 1.5 GM in SOD CHLORIDE 0.9% 250 ML IVPB (09:30)
[2018-07-07] MEDS: INSULIN ASPART [NOVOLOG] 3 ML PEN SC ×3 (11:28→23:32)
[2018-07-07] MEDS ORDERED: DEXTROSE 50% 50 ML SYRINGE IV (11:30)
[2018-07-07] MEDS ORDERED: GLUCAGON 1 MG INJ IM (11:30)
[2018-07-07] MEDS ORDERED: GLUCOSE GEL 15 GRAM TUBE PO ×2 (11:30)
[2018-07-07] MEDS ORDERED: GLUCOSE GEL 15 GRAM TUBE BUCCAL (11:30)
[2018-07-07] MEDS: KETOROLAC 15 MG INJ IV ×2 (14:31→21:01)
[2018-07-07] MEDS ORDERED: VANCOMYCIN 1 GM 250 ML IVPB (21:00)
[2018-07-07] MEDS: ZOLPIDEM 5 MG TAB PO (23:15)
[2018-07-08] MEDS: morphine 2 MG INJ IV ×3 (01:06→09:05)
[2018-07-08] MEDS: ACCU-CHEK XX (02:00)
[2018-07-08] MEDS: INSULIN ASPART [NOVOLOG] 3 ML PEN SC ×3 (06:00→17:21)
[2018-07-08 06:58] LABS: ADD MAN DIFF? NO
[2018-07-08 07:01] LABS: WHITE BLOOD COUNT 6.5 10^3/ul (4.8-10.8)
[2018-07-08 07:01] LABS: BASOPHILS % 0.3 % (0.0-2.0); EOSINOPHILS % 0.6 % (0.0-7.0); HEMATOCRIT 29.9 % (42.0-52.0); HEMOGLOBIN 9.4 g/dl (14.0-18.0); LYMPHOCYTES # 1.4 10^3/ul (0.8-2.9); MEAN CORPUSCULAR HEMOGLOBIN 28.4 pg (29.0-33.0); MEAN CORPUSCULAR HGB CONC 31.4 g/dl (32.0-37.0); MEAN CORPUSCULAR VOLUME 90.3 fl (82.0-101.0); MEAN PLATELET VOLUME 12.4 fl (7.4-10.4); MONOCYTE # 0.3 10^3/ul (0.3-0.9); MONOCYTES % 5.3 % (0.0-11.0); NEUTROPHIL # 4.7 10^3/ul (1.6-7.5); NEUTROPHILS % 72.2 % (39.0-77.0); PLATELET COUNT 260 10^3/UL (140-415); RED BLOOD COUNT 3.31 10^6/ul (4.70-6.10); RED CELL DISTRIBUTION WIDTH 15.6 % (11.5-14.5)
[2018-07-08 07:46] LABS: ALANINE AMINOTRANSFERASE 17 IU/L (13-69); ALBUMIN 4.4 g/dl (3.3-4.9); ALBUMIN/GLOBULIN RATIO 1.22; ALKALINE PHOSPHATASE 39 IU/L (42-121); ANION GAP 11 (5-13); ASPARTATE AMINO TRANSFERASE 23 IU/L (15-46); BILIRUBIN,INDIRECT 0.3 mg/dl (0-1.1); BILIRUBIN,TOTAL 0.3 mg/dl (0.2-1.3); BLOOD UREA NITROGEN 10 mg/dl (7-20); CALCIUM 10.2 mg/dl (8.4-10.2); CARBON DIOXIDE 19 mmol/L (21-31); CHLORIDE 114 mmol/L (97-110); CREATININE 0.61 mg/dl (0.61-1.24); Estimated GFR > 60 mL/min (>60); GLUCOSE 137 mg/dl (70-220); POTASSIUM 3.7 mmol/L (3.5-5.1); SODIUM 144 mmol/L (135-144)
[2018-07-08] MEDS: GABAPENTIN 300 MG CAP PO ×3 (09:05→21:06)
[2018-07-08] MEDS: BACLOFEN 10 MG TAB PO ×3 (09:05→21:05)
[2018-07-08] MEDS: ENOXAPARIN 40 MG/0.4 ML SYG SC (09:06)
[2018-07-08] MEDS: METHADONE 10 MG TAB PO ×2 (09:10→21:06)
[2018-07-08] MEDS: HYDROCODONE/APAP (5/325) TAB PO ×2 (15:55→21:25)
[2018-07-08] MEDS: RISPERIDONE 2 MG TAB PO (21:00)
[2018-07-08] MEDS: TIZANIDINE 2 MG TAB PO (21:05)
[2018-07-08] MEDS: SENNA TAB PO (21:06)
[2018-07-08] MEDS: ZOLPIDEM 5 MG TAB PO (21:28)
[2018-07-09] MEDS: DIAZEPAM 5 MG TAB PO ×2 (00:17→23:18)
[2018-07-09] MEDS: ACETAMINOPHEN 325 MG TAB PO ×2 (00:17→03:59)
[2018-07-09] MEDS: INSULIN ASPART [NOVOLOG] 3 ML PEN SC ×5 (00:25→23:21)
[2018-07-09] MEDS: ACCU-CHEK XX (02:00)
[2018-07-09] MEDS: HYDROCODONE/APAP (5/325) TAB PO ×3 (03:58→19:30)
[2018-07-09 08:39] LABS: ADD MAN DIFF? NO
[2018-07-09 08:45] LABS: BASOPHILS % 0.5 % (0.0-2.0); EOSINOPHILS # 0.2 10^3/ul (0.0-0.5); EOSINOPHILS % 2.4 % (0.0-7.0); HEMATOCRIT 27.5 % (42.0-52.0); HEMOGLOBIN 8.7 g/dl (14.0-18.0); LYMPHOCYTES # 2.7 10^3/ul (0.8-2.9); LYMPHOCYTES % 32.7 % (15.0-51.0); MEAN CORPUSCULAR HEMOGLOBIN 28.2 pg (29.0-33.0); MEAN CORPUSCULAR HGB CONC 31.6 g/dl (32.0-37.0); MEAN CORPUSCULAR VOLUME 89.3 fl (82.0-101.0); MEAN PLATELET VOLUME 11.8 fl (7.4-10.4); MONOCYTE # 0.7 10^3/ul (0.3-0.9); MONOCYTES % 9.1 % (0.0-11.0); NEUTROPHIL # 4.5 10^3/ul (1.6-7.5); NEUTROPHILS % 54.8 % (39.0-77.0); PLATELET COUNT 261 10^3/UL (140-415); RED BLOOD COUNT 3.08 10^6/ul (4.70-6.10); RED CELL DISTRIBUTION WIDTH 15.6 % (11.5-14.5)
[2018-07-09 08:45] LABS: WHITE BLOOD COUNT 8.2 10^3/ul (4.8-10.8)
[2018-07-09] MEDS: BACLOFEN 10 MG TAB PO ×3 (09:01→21:00)
[2018-07-09] MEDS: METHADONE 10 MG TAB PO ×2 (09:01→21:56)
[2018-07-09] MEDS: GABAPENTIN 300 MG CAP PO ×3 (09:01→21:01)
[2018-07-09] MEDS: POLYETHYLENE GLYCOL 17 GM PACKET PO (09:01)
[2018-07-09] MEDS: TIZANIDINE 2 MG TAB PO (09:02)
[2018-07-09] MEDS: SENNA TAB PO ×2 (09:02→21:01)
[2018-07-09 09:05] LABS: ALANINE AMINOTRANSFERASE 18 IU/L (13-69); ALBUMIN 4.1 g/dl (3.3-4.9); ALBUMIN/GLOBULIN RATIO 1.17; ALKALINE PHOSPHATASE 29 IU/L (42-121); ANION GAP 13 (5-13); ASPARTATE AMINO TRANSFERASE 21 IU/L (15-46); BILIRUBIN,INDIRECT 0.3 mg/dl (0-1.1); BILIRUBIN,TOTAL 0.3 mg/dl (0.2-1.3); BLOOD UREA NITROGEN 19 mg/dl (7-20); CALCIUM 10.1 mg/dl (8.4-10.2); CARBON DIOXIDE 18 mmol/L (21-31); CHLORIDE 109 mmol/L (97-110); CREATININE 0.63 mg/dl (0.61-1.24); Estimated GFR > 60 mL/min (>60); GLUCOSE 109 mg/dl (70-220); POTASSIUM 3.6 mmol/L (3.5-5.1); SODIUM 140 mmol/L (135-144); TOTAL PROTEIN 7.6 g/dl (6.1-8.1)
[2018-07-09] MEDS: ENOXAPARIN 40 MG/0.4 ML SYG SC (10:02)
[2018-07-09] MEDS: DICLOFENAC SODIUM 1% GEL 100 GM TUBE TP ×2 (17:17→21:02)
[2018-07-09 20:33] LABS: INR 1.15; PROTIME 14.8 Sec (11.9-14.9); PT RATIO 1.2
[2018-07-09] MEDS: RISPERIDONE 2 MG TAB PO (21:02)
[2018-07-09] MEDS: ZOLPIDEM 5 MG TAB PO (21:56)
[2018-07-10] MEDS: ACCU-CHEK XX (02:00)
[2018-07-10] MEDS: INSULIN ASPART [NOVOLOG] 3 ML PEN SC ×3 (05:39→17:48)
[2018-07-10] MEDS: DICLOFENAC SODIUM 1% GEL 100 GM TUBE TP ×4 (08:11→21:41)
[2018-07-10 08:27] LABS: ADD MAN DIFF? NO
[2018-07-10 08:35] LABS: BASOPHIL # 0.1 10^3/ul (0.0-0.1); BASOPHILS % 0.6 % (0.0-2.0); EOSINOPHILS # 0.2 10^3/ul (0.0-0.5); EOSINOPHILS % 2.2 % (0.0-7.0); HEMATOCRIT 29.9 % (42.0-52.0); HEMOGLOBIN 9.6 g/dl (14.0-18.0); LYMPHOCYTES # 2.4 10^3/ul (0.8-2.9); LYMPHOCYTES % 27.2 % (15.0-51.0); MEAN CORPUSCULAR HEMOGLOBIN 28.1 pg (29.0-33.0); MEAN CORPUSCULAR HGB CONC 32.1 g/dl (32.0-37.0); MEAN CORPUSCULAR VOLUME 87.4 fl (82.0-101.0); MONOCYTE # 0.8 10^3/ul (0.3-0.9); MONOCYTES % 8.7 % (0.0-11.0); NEUTROPHIL # 5.4 10^3/ul (1.6-7.5); NEUTROPHILS % 60.7 % (39.0-77.0); PLATELET COUNT 269 10^3/UL (140-415); RED BLOOD COUNT 3.42 10^6/ul (4.70-6.10); RED CELL DISTRIBUTION WIDTH 15.4 % (11.5-14.5)
[2018-07-10 08:57] LABS: ALANINE AMINOTRANSFERASE 37 IU/L (13-69); ALBUMIN 4.3 g/dl (3.3-4.9); ALBUMIN/GLOBULIN RATIO 1.22; ALKALINE PHOSPHATASE 37 IU/L (42-121); ANION GAP 15 (5-13); ASPARTATE AMINO TRANSFERASE 73 IU/L (15-46); BILIRUBIN,INDIRECT 0.4 mg/dl (0-1.1); BILIRUBIN,TOTAL 0.4 mg/dl (0.2-1.3); BLOOD UREA NITROGEN 14 mg/dl (7-20); CALCIUM 10.1 mg/dl (8.4-10.2); CARBON DIOXIDE 21 mmol/L (21-31); CHLORIDE 110 mmol/L (97-110); CREATININE 0.62 mg/dl (0.61-1.24); Estimated GFR > 60 mL/min (>60); GLUCOSE 85 mg/dl (70-220); POTASSIUM 3.3 mmol/L (3.5-5.1); SODIUM 146 mmol/L (135-144); TOTAL PROTEIN 7.8 g/dl (6.1-8.1)
[2018-07-10] MEDS: BACLOFEN 10 MG TAB PO ×3 (09:00→21:35)
[2018-07-10] MEDS: GABAPENTIN 300 MG CAP PO ×3 (09:00→21:34)
[2018-07-10] MEDS: METHADONE 10 MG TAB PO ×2 (09:00→21:40)
[2018-07-10] MEDS: SENNA TAB PO ×2 (09:00→21:35)
[2018-07-10] MEDS: POLYETHYLENE GLYCOL 17 GM PACKET PO (09:00)
[2018-07-10] MEDS: ENOXAPARIN 40 MG/0.4 ML SYG SC (09:00)
[2018-07-10] MEDS: CEFAZOLIN 2 GM/50 ML (PMX) 50 ML IVPB ×2 (09:57→11:33)
[2018-07-10] MEDS: POTASSIUM CHLORIDE 50 ML IVPB ×3 (11:44→15:00)
[2018-07-10] MEDS: SOD CHLORIDE 0.9% 1,000 ML IV (11:44)
[2018-07-10] MEDS: BISACODYL 10 MG SUPP PR (16:43)
[2018-07-10] MEDS: HYDROCODONE/APAP (5/325) TAB PO (16:49)
[2018-07-10 20:21] LABS: OCCULT BLOOD STOOL NEGATIVE (NEGATIVE)
[2018-07-10] MEDS ORDERED: VENLAFAXINE (XR) 75 MG CAP PO (21:00)
[2018-07-10] MEDS: RISPERIDONE 2 MG TAB PO (21:35)
[2018-07-10] MEDS: VENLAFAXINE (XR) 75 MG CAP PO (21:35)
[2018-07-10] MEDS: traZODone 50 MG TAB PO (21:36)
[2018-07-11] MEDS: SOD CHLORIDE 0.9% 1,000 ML IV ×2 (00:16→12:10)
[2018-07-11] MEDS: DIAZEPAM 5 MG TAB PO ×2 (00:22→23:49)
[2018-07-11] MEDS: ACCU-CHEK XX (03:00)
[2018-07-11] MEDS: INSULIN ASPART [NOVOLOG] 3 ML PEN SC ×4 (06:00→17:34)
[2018-07-11] MEDS: ACETAMINOPHEN 325 MG TAB PO (06:51)
[2018-07-11] MEDS: DEXTROSE 50% 50 ML SYRINGE IV ×2 (07:00→12:06)
[2018-07-11 08:10] LABS: ADD MAN DIFF? NO
[2018-07-11 08:21] LABS: BASOPHIL # 0.1 10^3/ul (0.0-0.1); BASOPHILS % 0.6 % (0.0-2.0); EOSINOPHILS # 0.2 10^3/ul (0.0-0.5); EOSINOPHILS % 2.3 % (0.0-7.0); HEMATOCRIT 29.8 % (42.0-52.0); HEMOGLOBIN 9.2 g/dl (14.0-18.0); LYMPHOCYTES # 2.2 10^3/ul (0.8-2.9); LYMPHOCYTES % 28.1 % (15.0-51.0); MEAN CORPUSCULAR HEMOGLOBIN 28.1 pg (29.0-33.0); MEAN CORPUSCULAR HGB CONC 30.9 g/dl (32.0-37.0); MEAN CORPUSCULAR VOLUME 91.1 fl (82.0-101.0); MEAN PLATELET VOLUME 11.3 fl (7.4-10.4); MONOCYTE # 0.8 10^3/ul (0.3-0.9); MONOCYTES % 9.9 % (0.0-11.0); NEUTROPHIL # 4.5 10^3/ul (1.6-7.5); NEUTROPHILS % 58.3 % (39.0-77.0); PLATELET COUNT 260 10^3/UL (140-415); RED BLOOD COUNT 3.27 10^6/ul (4.70-6.10); RED CELL DISTRIBUTION WIDTH 15.4 % (11.5-14.5)
[2018-07-11 08:21] LABS: WHITE BLOOD COUNT 7.8 10^3/ul (4.8-10.8)
[2018-07-11 08:29] LABS: ALANINE AMINOTRANSFERASE 30 IU/L (13-69); ALBUMIN 4.3 g/dl (3.3-4.9); ALBUMIN/GLOBULIN RATIO 1.19; ALKALINE PHOSPHATASE 34 IU/L (42-121); ANION GAP 18 (5-13); ASPARTATE AMINO TRANSFERASE 39 IU/L (15-46); BILIRUBIN,INDIRECT 0.4 mg/dl (0-1.1); BILIRUBIN,TOTAL 0.4 mg/dl (0.2-1.3); BLOOD UREA NITROGEN 14 mg/dl (7-20); CALCIUM 9.7 mg/dl (8.4-10.2); CARBON DIOXIDE 17 mmol/L (21-31); CHLORIDE 109 mmol/L (97-110); CREATININE 0.56 mg/dl (0.61-1.24); Estimated GFR > 60 mL/min (>60); GLUCOSE 96 mg/dl (70-220); POTASSIUM 3.3 mmol/L (3.5-5.1); SODIUM 144 mmol/L (135-144); TOTAL PROTEIN 7.9 g/dl (6.1-8.1)
[2018-07-11] MEDS: BACLOFEN 10 MG TAB PO ×3 (08:38→20:44)
[2018-07-11] MEDS: METHADONE 10 MG TAB PO ×2 (08:39→20:44)
[2018-07-11] MEDS: SENNA TAB PO ×2 (08:39→20:43)
[2018-07-11] MEDS: GABAPENTIN 300 MG CAP PO ×3 (08:39→20:44)
[2018-07-11] MEDS: POLYETHYLENE GLYCOL 17 GM PACKET PO (08:39)
[2018-07-11] MEDS: ENOXAPARIN 40 MG/0.4 ML SYG SC (08:48)
[2018-07-11] MEDS: DICLOFENAC SODIUM 1% GEL 100 GM TUBE TP ×4 (08:48→20:45)
[2018-07-11] MEDS: HYDROCODONE/APAP (5/325) TAB PO ×2 (10:10→18:37)
[2018-07-11] MEDS: POTASSIUM CHLORIDE 20 MEQ POWDER FOR ORAL SOLN PO (10:44)
[2018-07-11] MEDS: NA PHOSPHATE/BIPHOS 133 ML ENEMA PR (20:42)
[2018-07-11] MEDS: RISPERIDONE 2 MG TAB PO (20:42)
[2018-07-11] MEDS: traZODone 50 MG TAB PO (20:43)
[2018-07-11] MEDS: VENLAFAXINE (XR) 75 MG CAP PO (20:43)
[2018-07-12] MEDS: SOD CHLORIDE 0.9% 1,000 ML IV ×2 (01:30→14:50)
[2018-07-12] MEDS: HYDROCODONE/APAP (5/325) TAB PO (01:44)
[2018-07-12] MEDS: ACCU-CHEK XX (02:00)
[2018-07-12] MEDS: INSULIN ASPART [NOVOLOG] 3 ML PEN SC ×5 (06:00→23:51)
[2018-07-12] MEDS: POLYETHYLENE GLYCOL 17 GM PACKET PO (09:00)
[2018-07-12] MEDS: SENNA TAB PO ×2 (09:12→20:46)
[2018-07-12] MEDS: BACLOFEN 10 MG TAB PO ×3 (09:12→20:46)
[2018-07-12] MEDS: GABAPENTIN 300 MG CAP PO ×3 (09:12→20:46)
[2018-07-12] MEDS: METHADONE 10 MG TAB PO ×2 (09:13→20:46)
[2018-07-12] MEDS: ENOXAPARIN 40 MG/0.4 ML SYG SC (09:24)
[2018-07-12] MEDS ORDERED: LORAZEPAM 2 MG INJ IV (10:30)
[2018-07-12] MEDS: DICLOFENAC SODIUM 1% GEL 100 GM TUBE TP ×4 (12:19→20:47)
[2018-07-12 17:05] LABS: PHOSPHORUS 4.1 mg/dl (2.5-4.9)
[2018-07-12] MEDS: LEVETIRACETAM 500 MG TAB PO (20:46)
[2018-07-12] MEDS: traZODone 50 MG TAB PO (20:46)
[2018-07-12] MEDS: VENLAFAXINE (XR) 75 MG CAP PO (20:47)
[2018-07-12] MEDS: RISPERIDONE 2 MG TAB PO (20:47)
[2018-07-13] MEDS: ACCU-CHEK XX (02:00)
[2018-07-13] MEDS: SOD CHLORIDE 0.9% 1,000 ML IV ×2 (04:10→17:06)
[2018-07-13] MEDS: INSULIN ASPART [NOVOLOG] 3 ML PEN SC ×3 (06:00→18:00)
[2018-07-13] MEDS: SENNA TAB PO ×2 (09:00→21:19)
[2018-07-13] MEDS: POLYETHYLENE GLYCOL 17 GM PACKET PO (09:00)
[2018-07-13] MEDS: BACLOFEN 10 MG TAB PO ×3 (09:25→21:19)
[2018-07-13] MEDS: GABAPENTIN 300 MG CAP PO ×3 (09:25→21:19)
[2018-07-13] MEDS: LEVETIRACETAM 500 MG TAB PO ×2 (09:26→21:19)
[2018-07-13] MEDS: METHADONE 10 MG TAB PO ×2 (09:26→21:19)
[2018-07-13] MEDS: DICLOFENAC SODIUM 1% GEL 100 GM TUBE TP ×4 (09:27→21:20)
[2018-07-13] MEDS: ENOXAPARIN 40 MG/0.4 ML SYG SC (09:48)
[2018-07-13] MEDS: HYDROCODONE/APAP (5/325) TAB PO ×2 (11:44→19:06)
[2018-07-13] MEDS: RISPERIDONE 2 MG TAB PO (21:19)
[2018-07-13] MEDS: traZODone 50 MG TAB PO (21:19)
[2018-07-13] MEDS: QUETIAPINE 25 MG TAB PO (21:19)
[2018-07-13] MEDS: VENLAFAXINE (XR) 75 MG CAP PO (21:20)
[2018-07-14] MEDS: ACCU-CHEK XX (00:24)
[2018-07-14] MEDS: INSULIN ASPART [NOVOLOG] 3 ML PEN SC ×5 (05:22→23:45)
[2018-07-14] MEDS: SOD CHLORIDE 0.9% 1,000 ML IV (05:22)
[2018-07-14] MEDS: POLYETHYLENE GLYCOL 17 GM PACKET PO (09:00)
[2018-07-14] MEDS: SENNA TAB PO ×2 (09:00→21:17)
[2018-07-14] MEDS: METHADONE 10 MG TAB PO ×2 (09:23→21:20)
[2018-07-14] MEDS: BACLOFEN 10 MG TAB PO ×3 (09:23→21:17)
[2018-07-14] MEDS: LEVETIRACETAM 500 MG TAB PO ×2 (09:23→21:18)
[2018-07-14] MEDS: GABAPENTIN 300 MG CAP PO ×3 (09:23→21:17)
[2018-07-14] MEDS: DICLOFENAC SODIUM 1% GEL 100 GM TUBE TP ×4 (09:23→21:17)
[2018-07-14] MEDS: ENOXAPARIN 40 MG/0.4 ML SYG SC (10:21)
[2018-07-14] MEDS ORDERED: METOPROLOL 25 MG TAB GTB (11:30)
[2018-07-14] MEDS: METOPROLOL 25 MG TAB GTB (12:00)
[2018-07-14] MEDS: HYDROCODONE/APAP (5/325) TAB PO ×2 (16:36→21:17)
[2018-07-14] MEDS: VENLAFAXINE (XR) 75 MG CAP PO (21:16)
[2018-07-14] MEDS: RISPERIDONE 2 MG TAB PO (21:16)
[2018-07-14] MEDS: traZODone 50 MG TAB PO (21:17)
[2018-07-14] MEDS: QUETIAPINE 25 MG TAB PO (21:17)
[2018-07-14] MEDS: ATORVASTATIN 10 MG TAB PO (21:17)
[2018-07-15] MEDS: ACCU-CHEK XX (01:33)
[2018-07-15] MEDS: INSULIN ASPART [NOVOLOG] 3 ML PEN SC ×3 (05:54→17:53)
[2018-07-15] MEDS: GABAPENTIN 300 MG CAP PO ×3 (08:43→20:33)
[2018-07-15] MEDS: BACLOFEN 10 MG TAB PO ×3 (08:43→20:32)
[2018-07-15] MEDS: FLUOXETINE 10 MG CAP PO (08:43)
[2018-07-15] MEDS: LEVETIRACETAM 500 MG TAB PO ×2 (08:43→20:33)
[2018-07-15] MEDS: DICLOFENAC SODIUM 1% GEL 100 GM TUBE TP ×4 (08:44→21:08)
[2018-07-15] MEDS: POLYETHYLENE GLYCOL 17 GM PACKET PO (08:44)
[2018-07-15] MEDS: SENNA TAB PO ×2 (08:44→21:05)
[2018-07-15] MEDS: ENOXAPARIN 40 MG/0.4 ML SYG SC (08:48)
[2018-07-15] MEDS: METHADONE 10 MG TAB PO ×2 (08:55→20:32)
[2018-07-15] MEDS: SOD CHLORIDE 0.9% 500 ML IV (16:24)
[2018-07-15] MEDS: METOPROLOL 25 MG TAB NGT ×2 (16:25→20:35)
[2018-07-15 17:32] LABS: ADD UMIC YES; UR ASCORBIC ACID 20 mg/dL (NEGATIVE); UR BACTERIA FEW /HPF (NONE SEEN); UR BILIRUBIN (Dip) NEGATIVE (NEGATIVE); UR BLOOD (Dip) NEGATIVE (NEGATIVE); UR CLARITY SLIGHTLY CLOUDY (CLEAR); UR COLOR YELLOW (YELLOW); UR GLUCOSE (Dip) 1+ mg/dL (NEGATIVE); UR KETONES (Dip) NEGATIVE (NEGATIVE); UR LEUKOCYTE ESTERASE (Dip) 1+ Leu/ul (NEGATIVE); UR MUCUS MANY /HPF (NONE SEEN); UR NITRITE (Dip) NEGATIVE (NEGATIVE); UR NONSQUAMOUS EPITHELIAL CELL 1 /HPF (NONE SEEN); UR RBC 33 /HPF (0-5); UR SPECIFIC GRAVITY (Dip) 1.017 (1.003-1.030); UR TOTAL PROTEIN (Dip) 2+ mg/dl (NEGATIVE); UR UROBILINOGEN (Dip) 1+ mg/dL (NEGATIVE); UR WBC 92 /HPF (0-5)
[2018-07-15] MEDS: VENLAFAXINE (XR) 75 MG CAP PO (20:26)
[2018-07-15] MEDS: RISPERIDONE 2 MG TAB PO (20:26)
[2018-07-15] MEDS: QUETIAPINE 25 MG TAB PO (20:32)
[2018-07-15] MEDS: ATORVASTATIN 10 MG TAB PO (20:33)
[2018-07-15] MEDS: traZODone 50 MG TAB PO (20:34)
[2018-07-15] MEDS: BISACODYL 10 MG SUPP PR (20:35)
[2018-07-15] MEDS: TIZANIDINE 2 MG TAB PO (21:08)
[2018-07-15] MEDS: ZOLPIDEM 5 MG TAB PO (23:56)
[2018-07-16] MEDS: ACCU-CHEK XX (02:00)
[2018-07-16] MEDS: INSULIN ASPART [NOVOLOG] 3 ML PEN SC ×4 (06:00→17:37)
[2018-07-16] MEDS: DICLOFENAC SODIUM 1% GEL 100 GM TUBE TP ×4 (08:40→20:54)
[2018-07-16] MEDS: GABAPENTIN 300 MG CAP PO ×3 (08:40→20:56)
[2018-07-16] MEDS: LEVETIRACETAM 500 MG TAB PO ×2 (08:40→20:55)
[2018-07-16] MEDS: FLUOXETINE 10 MG CAP PO (08:40)
[2018-07-16] MEDS: METOPROLOL 25 MG TAB NGT (08:40)
[2018-07-16] MEDS: POLYETHYLENE GLYCOL 17 GM PACKET PO (08:41)
[2018-07-16] MEDS: BACLOFEN 10 MG TAB PO ×3 (08:41→20:55)
[2018-07-16] MEDS: SENNA TAB PO ×2 (08:41→20:55)
[2018-07-16] MEDS: METHADONE 10 MG TAB PO ×2 (08:43→20:56)
[2018-07-16] MEDS: ENOXAPARIN 40 MG/0.4 ML SYG SC (08:54)
[2018-07-16] MEDS: FLUCONAZOLE 100 MG/50 ML (PMX) 50 ML IVPB (13:53)
[2018-07-16 14:20] LABS: ADD MAN DIFF? NO
[2018-07-16 14:21] LABS: WHITE BLOOD COUNT 12.1 10^3/ul (4.8-10.8)
[2018-07-16 14:21] LABS: BASOPHIL # 0.1 10^3/ul (0.0-0.1); BASOPHILS % 0.9 % (0.0-2.0); EOSINOPHILS # 0.6 10^3/ul (0.0-0.5); EOSINOPHILS % 4.6 % (0.0-7.0); HEMATOCRIT 34.3 % (42.0-52.0); HEMOGLOBIN 10.8 g/dl (14.0-18.0); LYMPHOCYTES # 3.9 10^3/ul (0.8-2.9); LYMPHOCYTES % 32.3 % (15.0-51.0); MEAN CORPUSCULAR HEMOGLOBIN 27.8 pg (29.0-33.0); MEAN CORPUSCULAR HGB CONC 31.5 g/dl (32.0-37.0); MEAN CORPUSCULAR VOLUME 88.4 fl (82.0-101.0); MONOCYTE # 1.3 10^3/ul (0.3-0.9); MONOCYTES % 10.5 % (0.0-11.0); NEUTROPHIL # 6.1 10^3/ul (1.6-7.5); NEUTROPHILS % 50.8 % (39.0-77.0); PLATELET COUNT 336 10^3/UL (140-415); RED BLOOD COUNT 3.88 10^6/ul (4.70-6.10); RED CELL DISTRIBUTION WIDTH 15.2 % (11.5-14.5)
[2018-07-16 14:46] LABS: ANION GAP 12 (5-13); BLOOD UREA NITROGEN 18 mg/dl (7-20); CALCIUM 10.8 mg/dl (8.4-10.2); CARBON DIOXIDE 23 mmol/L (21-31); CHLORIDE 105 mmol/L (97-110); CREATININE 0.56 mg/dl (0.61-1.24); Estimated GFR > 60 mL/min (>60); GLUCOSE 127 mg/dl (70-220); POTASSIUM 3.8 mmol/L (3.5-5.1); SODIUM 140 mmol/L (135-144)
[2018-07-16] MEDS: ACETAMINOPHEN 325 MG TAB PO (20:54)
[2018-07-16] MEDS: VENLAFAXINE (XR) 75 MG CAP PO (20:54)
[2018-07-16] MEDS: RISPERIDONE 2 MG TAB PO (20:55)
[2018-07-16] MEDS: QUETIAPINE 25 MG TAB PO (20:55)
[2018-07-16] MEDS: ATORVASTATIN 10 MG TAB PO (20:55)
[2018-07-16] MEDS: TIZANIDINE 2 MG TAB PO (20:55)
[2018-07-16] MEDS: traZODone 50 MG TAB PO (20:56)
[2018-07-17] MEDS: ACCU-CHEK XX (02:00)
[2018-07-17] MEDS: HYDROCODONE/APAP (5/325) TAB PO ×2 (04:46→17:16)
[2018-07-17] MEDS: INSULIN ASPART [NOVOLOG] 3 ML PEN SC ×5 (06:00→23:30)
[2018-07-17] MEDS: LEVETIRACETAM 500 MG TAB PO ×2 (08:26→20:50)
[2018-07-17] MEDS: BACLOFEN 10 MG TAB PO ×3 (08:26→20:50)
[2018-07-17] MEDS: FLUOXETINE 10 MG CAP PO (08:26)
[2018-07-17] MEDS: GABAPENTIN 300 MG CAP PO ×3 (08:26→20:50)
[2018-07-17] MEDS: TIZANIDINE 2 MG TAB PO ×2 (08:26→23:13)
[2018-07-17] MEDS: POLYETHYLENE GLYCOL 17 GM PACKET PO (08:26)
[2018-07-17] MEDS: SENNA TAB PO ×2 (08:26→20:49)
[2018-07-17] MEDS: ENOXAPARIN 40 MG/0.4 ML SYG SC (08:28)
[2018-07-17] MEDS: METHADONE 10 MG TAB PO ×2 (08:32→23:13)
[2018-07-17] MEDS: DICLOFENAC SODIUM 1% GEL 100 GM TUBE TP ×4 (08:37→20:52)
[2018-07-17] MEDS: FLUCONAZOLE 100 MG/50 ML (PMX) 50 ML IVPB (13:19)
[2018-07-17] MEDS ORDERED: VANCOMYCIN IV PER PHARMACY XX (20:30)
[2018-07-17] MEDS: ATORVASTATIN 10 MG TAB PO (20:49)
[2018-07-17] MEDS: QUETIAPINE 25 MG TAB PO (20:49)
[2018-07-17] MEDS: RISPERIDONE 2 MG TAB PO (20:50)
[2018-07-17] MEDS: VENLAFAXINE (XR) 75 MG CAP PO (20:50)
[2018-07-17] MEDS: traZODone 50 MG TAB PO (20:50)
[2018-07-17] MEDS: ACETAMINOPHEN 325 MG TAB PO (20:51)
[2018-07-17] MEDS: PIPER-TAZO 3.375 GM IV (PMX) 100 ML IVPB (23:12)
[2018-07-17] MEDS: NA PHOSPHATE/BIPHOS 133 ML ENEMA PR (23:30)
[2018-07-18] MEDS: NA PHOSPHATE/BIPHOS 133 ML ENEMA PR (00:18)
[2018-07-18] MEDS: VANCOMYCIN HCL 1.5 GM in SOD CHLORIDE 0.9% 250 ML IVPB (00:34)
[2018-07-18] MEDS: ACCU-CHEK XX (02:00)
[2018-07-18] MEDS: PIPER-TAZO 3.375 GM IV (PMX) 100 ML IVPB ×3 (06:04→21:29)
[2018-07-18] MEDS ORDERED: VANCOMYCIN HCL 1.25 GM in SOD CHLORIDE 0.9% 250 ML IVPB (07:00)
[2018-07-18] MEDS: INSULIN ASPART [NOVOLOG] 3 ML PEN SC ×4 (07:55→21:00)
[2018-07-18] MEDS: VANCOMYCIN 1 GM 250 ML IVPB ×2 (08:07→17:11)
[2018-07-18] MEDS: POLYETHYLENE GLYCOL 17 GM PACKET PO (08:07)
[2018-07-18] MEDS: BALSAM PERU/CASTOR OIL 60 GM TUBE TOP ×2 (08:08→21:02)
[2018-07-18] MEDS: METHADONE 10 MG TAB PO ×2 (08:09→21:01)
[2018-07-18] MEDS: LEVETIRACETAM 500 MG TAB PO ×2 (08:09→21:01)
[2018-07-18] MEDS: SENNA TAB PO ×2 (08:09→21:01)
[2018-07-18] MEDS: BACLOFEN 10 MG TAB PO ×3 (08:09→21:01)
[2018-07-18] MEDS: FLUOXETINE 10 MG CAP PO (08:09)
[2018-07-18] MEDS: GABAPENTIN 300 MG CAP PO ×3 (08:09→21:02)
[2018-07-18] MEDS: ENOXAPARIN 40 MG/0.4 ML SYG SC (08:24)
[2018-07-18] MEDS: DICLOFENAC SODIUM 1% GEL 100 GM TUBE TP ×4 (08:24→21:02)
[2018-07-18] MEDS: FLUCONAZOLE 100 MG/50 ML (PMX) 50 ML IVPB (12:47)
[2018-07-18] MEDS: ATORVASTATIN 10 MG TAB PO (21:00)
[2018-07-18] MEDS: QUETIAPINE 25 MG TAB PO (21:01)
[2018-07-18] MEDS: RISPERIDONE 2 MG TAB PO (21:01)
[2018-07-18] MEDS: traZODone 50 MG TAB PO (21:01)
[2018-07-18] MEDS: VENLAFAXINE (XR) 75 MG CAP PO (21:02)
[2018-07-19 01:38] LABS: CREATININE 0.74 mg/dl (0.61-1.24)
[2018-07-19 01:38] LABS: BLOOD UREA NITROGEN 18 mg/dl (7-20)
[2018-07-19 01:46] LABS: VANCOMYCIN,TROUGH 28.3 ug/ml (10.0-20.0)
[2018-07-19] MEDS: ACCU-CHEK XX (02:00)
[2018-07-19] MEDS: PIPER-TAZO 3.375 GM IV (PMX) 100 ML IVPB ×2 (05:11→13:26)
[2018-07-19] MEDS: ACETAMINOPHEN 325 MG TAB PO (05:11)
[2018-07-19 06:22] LABS: ADD MAN DIFF? NO
[2018-07-19 06:30] LABS: WHITE BLOOD COUNT 10.3 10^3/ul (4.8-10.8)
[2018-07-19 06:30] LABS: BASOPHIL # 0.1 10^3/ul (0.0-0.1); BASOPHILS % 0.6 % (0.0-2.0); EOSINOPHILS # 0.4 10^3/ul (0.0-0.5); EOSINOPHILS % 3.6 % (0.0-7.0); HEMATOCRIT 29.6 % (42.0-52.0); LYMPHOCYTES # 2.5 10^3/ul (0.8-2.9); LYMPHOCYTES % 24.7 % (15.0-51.0); MEAN CORPUSCULAR HEMOGLOBIN 27.2 pg (29.0-33.0); MEAN CORPUSCULAR HGB CONC 30.4 g/dl (32.0-37.0); MEAN CORPUSCULAR VOLUME 89.4 fl (82.0-101.0); MEAN PLATELET VOLUME 12.4 fl (7.4-10.4); MONOCYTE # 1.3 10^3/ul (0.3-0.9); MONOCYTES % 12.7 % (0.0-11.0); NEUTROPHILS % 57.9 % (39.0-77.0); POSITIVE DIFF @See below; RED BLOOD COUNT 3.31 10^6/ul (4.70-6.10); RED CELL DISTRIBUTION WIDTH 15.2 % (11.5-14.5)
[2018-07-19 06:50] LABS: PLATELET COUNT 227 10^3/UL (140-415)
[2018-07-19 07:14] LABS: ANION GAP 18 (5-13); BLOOD UREA NITROGEN 19 mg/dl (7-20); CALCIUM 9.8 mg/dl (8.4-10.2); CARBON DIOXIDE 17 mmol/L (21-31); CHLORIDE 109 mmol/L (97-110); CREATININE 1.07 mg/dl (0.61-1.24); Estimated GFR > 60 mL/min (>60); GLUCOSE 95 mg/dl (70-220); SODIUM 144 mmol/L (135-144)
[2018-07-19] MEDS: INSULIN ASPART [NOVOLOG] 3 ML PEN SC ×4 (07:55→21:00)
[2018-07-19] MEDS: POLYETHYLENE GLYCOL 17 GM PACKET PO (08:54)
[2018-07-19] MEDS: SENNA TAB PO ×2 (08:55→21:11)
[2018-07-19] MEDS: BACLOFEN 10 MG TAB PO ×3 (08:55→21:12)
[2018-07-19] MEDS: LEVETIRACETAM 500 MG TAB PO ×2 (08:55→21:12)
[2018-07-19] MEDS: BALSAM PERU/CASTOR OIL 60 GM TUBE TOP ×2 (08:56→21:23)
[2018-07-19] MEDS: FLUOXETINE 10 MG CAP PO (08:56)
[2018-07-19] MEDS: METHADONE 10 MG TAB PO ×2 (08:56→21:12)
[2018-07-19] MEDS: GABAPENTIN 300 MG CAP PO ×3 (08:56→21:12)
[2018-07-19] MEDS: DICLOFENAC SODIUM 1% GEL 100 GM TUBE TP ×4 (08:56→21:00)
[2018-07-19] MEDS: ENOXAPARIN 40 MG/0.4 ML SYG SC (09:14)
[2018-07-19] MEDS: TIZANIDINE 2 MG TAB PO (11:53)
[2018-07-19] MEDS: FLUCONAZOLE 100 MG/50 ML (PMX) 50 ML IVPB (14:36)
[2018-07-19] MEDS: NA PHOSPHATE/BIPHOS 133 ML ENEMA PR (20:39)
[2018-07-19] MEDS ORDERED: VANCOMYCIN 1 GM 250 ML IVPB (21:00)
[2018-07-19] MEDS: VENLAFAXINE (XR) 75 MG CAP PO (21:11)
[2018-07-19] MEDS: QUETIAPINE 25 MG TAB PO (21:11)
[2018-07-19] MEDS: ATORVASTATIN 10 MG TAB PO (21:11)
[2018-07-19] MEDS: RISPERIDONE 2 MG TAB PO (21:11)
[2018-07-19] MEDS: traZODone 50 MG TAB PO (21:12)
[2018-07-20] MEDS: ACCU-CHEK XX (01:51)
[2018-07-20] MEDS: HYDROCODONE/APAP (5/325) TAB PO (03:29)
[2018-07-20] MEDS: INSULIN ASPART [NOVOLOG] 3 ML PEN SC ×4 (07:55→21:55)
[2018-07-20] MEDS: LEVETIRACETAM 500 MG TAB PO ×2 (08:47→21:32)
[2018-07-20] MEDS: TIZANIDINE 2 MG TAB PO (08:47)
[2018-07-20] MEDS: SENNA TAB PO ×2 (08:47→21:28)
[2018-07-20] MEDS: BACLOFEN 10 MG TAB PO ×3 (08:47→21:28)
[2018-07-20] MEDS: POLYETHYLENE GLYCOL 17 GM PACKET PO (08:47)
[2018-07-20] MEDS: FLUOXETINE 10 MG CAP PO (08:48)
[2018-07-20] MEDS: GABAPENTIN 300 MG CAP PO ×3 (08:48→21:27)
[2018-07-20] MEDS: DICLOFENAC SODIUM 1% GEL 100 GM TUBE TP ×4 (08:48→21:26)
[2018-07-20] MEDS: METHADONE 10 MG TAB PO ×2 (08:48→21:33)
[2018-07-20] MEDS: BALSAM PERU/CASTOR OIL 60 GM TUBE TOP ×2 (08:49→21:26)
[2018-07-20] MEDS: ENOXAPARIN 40 MG/0.4 ML SYG SC (09:47)
[2018-07-20] MEDS: traZODone 50 MG TAB PO (21:27)
[2018-07-20] MEDS: VENLAFAXINE (XR) 75 MG CAP PO (21:27)
[2018-07-20] MEDS: QUETIAPINE 25 MG TAB PO (21:28)
[2018-07-20] MEDS: ATORVASTATIN 10 MG TAB PO (21:28)
[2018-07-20] MEDS: RISPERIDONE 2 MG TAB PO (21:28)
[2018-07-21] MEDS: ACCU-CHEK XX (02:00)
[2018-07-21] MEDS: INSULIN ASPART [NOVOLOG] 3 ML PEN SC ×2 (07:55→11:50)
[2018-07-21] MEDS: BACLOFEN 10 MG TAB PO ×2 (08:08→12:40)
[2018-07-21] MEDS: FLUOXETINE 10 MG CAP PO (08:08)
[2018-07-21] MEDS: GABAPENTIN 300 MG CAP PO ×2 (08:08→12:40)
[2018-07-21] MEDS: LEVETIRACETAM 500 MG TAB PO (08:08)
[2018-07-21] MEDS: SENNA TAB PO (08:08)
[2018-07-21] MEDS: ENOXAPARIN 40 MG/0.4 ML SYG SC (08:09)
[2018-07-21] MEDS: METHADONE 10 MG TAB PO (08:09)
[2018-07-21] MEDS: POLYETHYLENE GLYCOL 17 GM PACKET PO (08:09)
[2018-07-21] MEDS: BALSAM PERU/CASTOR OIL 60 GM TUBE TOP (08:10)
[2018-07-21] MEDS: DICLOFENAC SODIUM 1% GEL 100 GM TUBE TP ×2 (08:10→12:40)
[2018-07-21 10:51] LABS: ADD MAN DIFF? NO
[2018-07-21 10:57] LABS: WHITE BLOOD COUNT 9.4 10^3/ul (4.8-10.8)
[2018-07-21 10:57] LABS: BASOPHIL # 0.1 10^3/ul (0.0-0.1); BASOPHILS % 0.9 % (0.0-2.0); EOSINOPHILS # 0.3 10^3/ul (0.0-0.5); EOSINOPHILS % 3.6 % (0.0-7.0); HEMATOCRIT 29.5 % (42.0-52.0); HEMOGLOBIN 9.4 g/dl (14.0-18.0); LYMPHOCYTES # 2.7 10^3/ul (0.8-2.9); LYMPHOCYTES % 28.3 % (15.0-51.0); MEAN CORPUSCULAR HEMOGLOBIN 28.1 pg (29.0-33.0); MEAN CORPUSCULAR HGB CONC 31.9 g/dl (32.0-37.0); MEAN CORPUSCULAR VOLUME 88.1 fl (82.0-101.0); MEAN PLATELET VOLUME 11.5 fl (7.4-10.4); MONOCYTE # 0.9 10^3/ul (0.3-0.9); MONOCYTES % 9.7 % (0.0-11.0); NEUTROPHIL # 5.4 10^3/ul (1.6-7.5); NEUTROPHILS % 56.9 % (39.0-77.0); PLATELET COUNT 329 10^3/UL (140-415); RED BLOOD COUNT 3.35 10^6/ul (4.70-6.10); RED CELL DISTRIBUTION WIDTH 14.9 % (11.5-14.5)
[2018-07-21 11:18] LABS: ANION GAP 15 (5-13); BLOOD UREA NITROGEN 17 mg/dl (7-20); CALCIUM 10.1 mg/dl (8.4-10.2); CARBON DIOXIDE 17 mmol/L (21-31); CHLORIDE 113 mmol/L (97-110); CREATININE 1.67 mg/dl (0.61-1.24); Estimated GFR 49 mL/min (>60); GLUCOSE 114 mg/dl (70-220); POTASSIUM 3.8 mmol/L (3.5-5.1); SODIUM 145 mmol/L (135-144)
[2018-07-21] MEDS: TIZANIDINE 2 MG TAB PO (12:44)
[2018-07-23 13:20] LABS: PROCALCITONIN 0.29 ng/mL (<0.10)
== END 2018-07-21 17:13 | DRG 640 ==
LOC: E/R 15:00 → TEL 19:21
PROC: 0DH63UZ Insertion of Feeding Device into Stomach, Percutaneous Approach (ICD-10-PCS; principal; 2018-07-10 09:00)
PROC: 0DB68ZX Excision of Stomach, Via Natural or Artificial Opening Endoscopic, Diagnostic (ICD-10-PCS; 2018-07-10 09:00)
PROC: 5A1955Z Respiratory Ventilation, Greater than 96 Consecutive Hours (ICD-10-PCS; 2018-07-10 09:10)
DX: E86.0 Dehydration (principal); G82.50 Quadriplegia, unspecified; K56.7 Ileus, unspecified; J96.10 Chronic respiratory failure, unspecified whether with hypoxia or hypercapnia; R44.0 Auditory hallucinations; B37.49 Other urogenital candidiasis; G93.49 Other encephalopathy; E87.2 Acidosis; E11.9 Type 2 diabetes mellitus without complications; E78.5 Hyperlipidemia, unspecified; G89.29 Other chronic pain; G40.909 Epilepsy, unspecified, not intractable, without status epilepticus; G62.89 Other specified polyneuropathies; I95.9 Hypotension, unspecified; K59.00 Constipation, unspecified; K26.9 Duodenal ulcer, unspecified as acute or chronic, without hemorrhage or perforation; M54.5 Low back pain; R19.7 Diarrhea, unspecified; R13.10 Dysphagia, unspecified; R00.1 Bradycardia, unspecified; R44.1 Visual hallucinations; Z93.0 Tracheostomy status; Z99.81 Dependence on supplemental oxygen; Z79.891 Long term (current) use of opiate analgesic
CPT/HCPCS: 36415; 36600; 70450; 71045; 74176; 80048; 80053; 80061; 80202; 81001; 82270; 82565; 82803; 82962; 83605; 83735; 84100; 84145; 84443; 84520; 85025; 85610; 87040; 87045; 87081; 87086; 87205; 88305; 92526; 92610; 93005; 94002; 94003; 95819; 99285-25